=== PATIENT | male | born 1985 | race African-American/Black ===

== ENCOUNTER 2021-02-24 11:56 | Emergency (ER) | payer MEDICAID ==
[~2021-02-24] VITALS: Ht 185.4 cm; Wt 91.0 kg
[2021-02-24] MEDS ORDERED: ACETAMINOPHEN WITH CODEINE 300/30MG TABLET PO ONE (14:00)
[2021-02-24 14:27] VITALS: BP 129/82
[2021-02-24] MEDS ORDERED: IBUP-2029 MT (14:50)
[2021-02-24] MEDS ORDERED: AMOX-424 MT (14:50)
== END 2021-02-24 14:59 | disposition home or self-care (01) ==
LOC: ER 11:56
DX: K08.89 Other specified disorders of teeth and supporting structures (principal); F12.10 Cannabis abuse, uncomplicated; Z79.899 Other long term (current) drug therapy
CPT/HCPCS: 99282; 99283

== ENCOUNTER 2021-07-04 19:53 | Emergency (ER) | payer MEDICAID ==
[~2021-07-04] VITALS: Ht 185.4 cm; Wt 87.0 kg
[~2021-07-04 19:53] MED LIST: AMOX-424 MT; IBUP-2029 MT
[2021-07-04] MEDS: AZITHROMYCIN 500 MG TABLET PO ONE (21:53)
[2021-07-04] MEDS: CEFTRIAXONE SODIUM 250 MG/VIAL IM ONE (21:53)
[2021-07-04 22:00] LABS: CLARITY URINE TURBID (CLEAR); COLOR URINE YELLOW (YELLOW); KETONES URINE TRACE (NEGATIVE); LEUKOCYTE ESTERASE URINE 2+ (NEGATIVE); NITRITE URINE NEGATIVE (NEGATIVE); OCCULT BLOOD URINE NEGATIVE (NEGATIVE); PROTEIN URINE NEGATIVE (NEGATIVE)
[2021-07-04 22:03] VITALS: BP 145/75
[2021-07-07 04:07] LABS: NEISSERIA GONORRHOEAE NAA Positive (Negative)
== END 2021-07-04 22:05 | disposition home or self-care (01) ==
LOC: ER 19:53
DX: A54.09 Other gonococcal infection of lower genitourinary tract (principal); R03.0 Elevated blood-pressure reading, without diagnosis of hypertension
CPT/HCPCS: 81003; 87086; 87491; 87591; 96372; 99283; J0696

== ENCOUNTER 2021-09-02 18:00 | Emergency (ER) | payer MEDICAID ==
[~2021-09-02] VITALS: Ht 185.4 cm; Wt 90.0 kg
[2021-09-02] MEDS ORDERED: PREDNISONE 20MG TABLET PO STA (18:17)
[2021-09-02] MEDS ORDERED: IPRATROPIUM BROMIDE (0.02%) 0.5MG/2.5ML NEB HHN STA (18:17)
[2021-09-02] MEDS: ALBUTEROL (0.083%) 2.5MG/3ML NEB HHN SCH ×3 (18:30→19:30)
[2021-09-02] MEDS ORDERED: ATROV INH (18:48)
[2021-09-02] MEDS ORDERED: ALBU6.7H9 INH (18:48)
[2021-09-02 19:31] VITALS: BP 135/75
== END 2021-09-02 19:39 | disposition home or self-care (01) ==
LOC: ER 18:00
DX: R07.89 Other chest pain (principal); F12.90 Cannabis use, unspecified, uncomplicated
CPT/HCPCS: 99283

== ENCOUNTER 2022-02-25 16:00 | Emergency (ER) | payer OTHER ==
[~2022-02-25] VITALS: Ht 185.4 cm; Wt 91.0 kg
[~2022-02-25 16:00] MED LIST changes: +ALBU6.7H9 INH; +ATROV INH
[2022-02-25] MEDS ORDERED: IBUPROFEN 400MG TABLET PO ONE (19:00)
[2022-02-25 21:30] VITALS: BP 134/83
== END 2022-02-25 21:36 | disposition home or self-care (01) ==
LOC: ER 16:00
DX: B34.9 Viral infection, unspecified (principal)
CPT/HCPCS: 87070; 87430; 99283

== ENCOUNTER 2022-02-26 07:25 | Emergency (ER) | payer OTHER ==
[~2022-02-26] VITALS: Ht 182.9 cm; Wt 82.0 kg
[2022-02-26] MEDS ORDERED: IBUPROFEN 600MG TABLET PO ONE (07:45)
[2022-02-26 08:15] VITALS: BP 135/75
== END 2022-02-26 11:22 | disposition home or self-care (01) ==
LOC: ER 07:25
DX: J02.9 Acute pharyngitis, unspecified (principal); F12.10 Cannabis abuse, uncomplicated; Z79.899 Other long term (current) drug therapy
CPT/HCPCS: 87070; 87430; 99283

== ENCOUNTER 2022-07-21 12:32 | Emergency (ER) | payer OTHER ==
[~2022-07-21] VITALS: Ht 177.8 cm; Wt 91.0 kg
[~2022-07-21 12:32] MED LIST changes: +ALBU6.7H3 INH; -ALBU6.7H9 INH
[2022-07-21 12:36] VITALS: BP 121/90
== END 2022-07-21 18:43 | disposition home or self-care (01) ==
LOC: ER 12:32
DX: Z53.21 Procedure and treatment not carried out due to patient leaving prior to being seen by health care provider (principal); I49.9 Cardiac arrhythmia, unspecified
CPT/HCPCS: 93005

== ENCOUNTER 2025-01-19 12:57 | Emergency (ER) | payer OTHER ==
[~2025-01-19] VITALS: Ht 185.4 cm; Wt 96.0 kg
[2025-01-19 13:07] VITALS: PULSE 87; RESP 18; O2SAT 100
[2025-01-19 13:08] VITALS: BP 141/87; TEMP 36.9; O2SAT 100
[2025-01-19] MEDS ORDERED: IPRATROPIUM/ALBUTEROL 0.5-3(2.5)MG/3ML NEB HHN ONE (15:30)
== END 2025-01-19 16:36 | disposition home or self-care (01) ==
LOC: ER 12:57
DX: J42 Unspecified chronic bronchitis (principal); I10 Essential (primary) hypertension; F12.90 Cannabis use, unspecified, uncomplicated; Z98.890 Other specified postprocedural states; Z79.899 Other long term (current) drug therapy
CPT/HCPCS: 71045; 99283

== ENCOUNTER 2025-02-13 12:03 | Emergency (ER) | payer OTHER ==
[~2025-02-13] VITALS: Ht 185.4 cm; Wt 98.0 kg
[2025-02-13 12:04] VITALS: O2SAT 99
[2025-02-13 12:07] VITALS: BP 137/78; PULSE 73; RESP 14; TEMP 36.6; O2SAT 99
== END 2025-02-13 14:03 | disposition left against medical advice (07) ==
LOC: ER 12:03
DX: Z11.3 Encounter for screening for infections with a predominantly sexual mode of transmission (principal); Z53.21 Procedure and treatment not carried out due to patient leaving prior to being seen by health care provider